=== PATIENT | male | born 1950 | race Caucasian/White ===

== ENCOUNTER → 2024-12-17 10:39 | Outpatient (REF) | payer MEDICARE, SELFPAY | LOC: RAD 10:39 | DX: Z13.6 Encounter for screening for cardiovascular disorders (principal) | CPT/HCPCS: 76770 ==

== ENCOUNTER 2025-03-13 05:17 | Inpatient (IN) | payer MEDICARE, SELFPAY ==
[2025-03-13] VITALS (20 sets, daily range): BP systolic 113–141; BP diastolic 71–101
[2025-03-13 01:31] LABS: Hematocrit 44.8 % (39.0-52.0); Hemoglobin 15.7 g/dL (13.0-18.0); Mean Corp Hgb Conc. 35.0 g/dL (33.0-37.0); Mean Corpuscular Volume 91.4 fL (80.0-94.0); Nucleated Red Blood Cells % 0 % (-); Platelet Count 233 10^3/uL (130-400); Red Cell Dist. Width 11.9 % (11.5-14.5)
--- NOTE | 2025-03-13 01:45 | ED.GENMED ---
ED Provider Triage
<Bao Nguyen MD, Resident - Last Filed: 03/13/25 02:12>
-
Patient seen by provider in Triage?: Seen in Triage
History of Present Illness
<Bao Nguyen MD, Resident - Last Filed: 03/13/25 02:12>
General
Chief Complaint: Heart Rate Problem
Source: patient
Exam Limitations: none
Time Seen by Provider: 03/13/25 01:12
History of Present Illness
History of Present Illness:
74-year-old male who presents for sudden onset of shortness of breath and a rapid heart rate measured using a pulse ox since 4 AM this morning. Highest reading on pulse ox was 124. Symptoms are aggravated on movement and relieved on rest.
Associated with lightheadedness and nausea. No previous cardiac history. Currently wears a Holter monitor as prescribed by rejector due to bradycardia seen on EKG in PCPs office. No chest pain, vomiting, diarrhea, syncope, cough, fever,
chills. Patient states that he recently had a long flight on Saturday and he also has a history of colon cancer which raises a suspicion for a pulmonary embolism. No previous similar clinical history. No use of beta-blockers, calcium channel
blockers, blood thinners.
Past History
<Bao Nguyen MD, Resident - Last Filed: 03/13/25 02:12>
Past History
ED Past Medical History: None
ED Past Surgical History: None
Social History
Tobacco: Former smoker
Alcohol: Occasional
Drug: None
Personal:
Living: with family
Review of Systems
<Bao Nguyen MD, Resident - Last Filed: 03/13/25 02:12>
Review of Systems
Allergies reviewed?: Yes
All Other Systems: ROS reviewed and negative except as documented in HPI and ROS
Phy Exam
<Bao Nguyen MD, Resident - Last Filed: 03/13/25 02:12>
General Physical Exam
General Presentation: well appearing and no apparent distress
General Skin: warm and dry
General Habitus: normal
General Mental: alert
Cardiovascular Exam
Cardiovascular Exam: regular rate/rhythm, no edema and other (There is a Holter monitor present on anterior right side of the chest)
Pulmonary Exam
Pulmonary Exam: lungs clear and no respiratory distress
Gastrointestinal Exam
Gastrointestinal Exam: normal bowel sounds, non tender, soft and non distended
Neurological Exam
Neurological Exam: alert and oriented x3
Musculoskeletal Exam
Musculoskeletal Exam: full ROM and no edema
Psychiatric Exam
Psychiatric Exam: normal mood/affect
Course
<Bao Nguyen MD, Resident - Last Filed: 03/13/25 02:12>
Orders/Labs/Results
Orders:
Orders
03/13/25 00:55
Electrocardiogram (*1) Urgent
Reason for Study: Other
Other Reason for Exam: Respiratory Distress
Cardiac Monitoring- Treatment ONCE
EKG- Treatment ONCE
IV Insert/Care/Rem.- Treatment PRN
CR Chest - 2 Views Urgent
Comment:
Reason For Exam: respiratory distress
O2 Therapy [RESP] Urgent
Titrate/Wean O2 to maintain O2 sat greater than (%): 93
Special Instructions: TO MAINTAIN CONTINUOUS O2 SATS >/= 93%
Pulse Ox/cont/shift [RESP] Urgent
Quantity: 1
Special Instructions: continuous pulse ox
03/13/25 01:18
Complete Blood Count/With Diff Urgent
Comprehensive Metabolic Panel Urgent
NT-proBNP Urgent
Troponin I Urgent
03/13/25 01:54
D-Dimer Urgent
PTT Urgent
03/13/25 02:18
CT Chest PE Study Urgent
Comment:
Reason For Exam: sob, tachycardic, elevated trop
Diphenhydramine [Benadryl] 50 mg IV NOW STA
Hydrocortisone Sod Succinate [Solu-Cortef] 200 mg IV NOW STA
03/13/25 03:29
Heparin 6,400 units IV NOW STA
Nursing to Place Non Medication Order As Directed
Physician Order: PTT 6 hours after initial start of Heparin infusion
Above order entered?: Yes
03/13/25 03:30
Heparin 77869 Units/250 ml 25,000 units in 250 ml IV PER PROTOCOL
Weight to be used for heparin protocol in kilograms (kg):: 79.5
Protocol:: DVT/PE
PTT Goal Range to be used:: PTT 73 to 111 seconds
Order type:: Initial
INITIAL Infusion Dose (UNITS/KG/hr) & then follow protocol:: 18 units/kg/hr
Infusion Dose in UNITS/hr & then follow protocol (UNITS/hr):: 1,400
INFUSION RATE in mL/hr & then follow protocol (mL/hr):: 14
For DVT/PE algorithm, re-bolus for low PTT?: Yes
PTT less than or equal to 64 seconds:: Re-bolus 80 units/kg (max 10,000units). Increase by 300 units/hr
(+ 3mL/hr)
PTT 64.1 to 72.9 seconds:: Re-bolus 40 units/kg (max 5,000 units). Increase by 200 units/hr
(+ 2mL/hr)
PTT 73 to 111 seconds:: Target Range. No change in rate.
PTT 111.1 to 130.9 seconds:: Decrease rate by 200 units/hr (- 2 mL/hr)
PTT 131 to 199.9 seconds:: HOLD for 1 hr. Then decrease by 200 units/hr (- 2mL/hr)
PTT greater than or equal to 200 seconds:: HOLD for 2 hrs & Notify Provider. Then decrease by 300 units/hr
(- 3mL/hr)
Lab follow-up:: Each change, PTT q6h until 2 consecutive are therapeutic. Then
PTT daily.
03/13/25 03:43
Heparin 3,200 units IV PRN PRN
Heparin 6,400 units IV PRN PRN
03/13/25 04:00
Flush (0.9% Sodium Chloride) [Flush (Nss)] See Dose Instructions IV PER PROTOCOL
03/13/25 10:15
PTT Routine
Abnormal Lab Results
03/13/25 03/13/25
01:18 01:54
MCH 32.0 H pg
(27.0-31.0)
Lymphocytes % 16.6 L %
(20.5-51.1)
D-Dimer 11.59 H ug/mlFEU
(0.00-0.50)
Chloride 109 H mmol/L
(98-107)
Glucose 135 H mg/dl
(70-99)
Troponin I 0.940 H* ng/ml
03/13/25 01:18
03/13/25 01:18
Vital Signs
Initial and Last Documented VS:
Initial Vital Signs
Temp Pulse Resp BP Pulse Ox
98.5 F 107 24 137/87 96
03/13/25 01:00 03/13/25 01:00 03/13/25 01:00 03/13/25 01:00 03/13/25 01:00
Last Documented Vital Signs
Temp Pulse Resp BP Pulse Ox
98.5 F 92 22 130/87 91
03/13/25 01:00 03/13/25 04:15 03/13/25 04:15 03/13/25 04:00 03/13/25 04:15
Jesuslt;Jabari Pelaez DO - Last Filed: 03/13/25 04:48>
Orders/Labs/Results
Orders:
Orders
03/13/25 00:55
Electrocardiogram (*1) Urgent
Reason for Study: Other
Other Reason for Exam: Respiratory Distress
Cardiac Monitoring- Treatment ONCE
EKG- Treatment ONCE
IV Insert/Care/Rem.- Treatment PRN
CR Chest - 2 Views Urgent
Comment:
Reason For Exam: respiratory distress
O2 Therapy [RESP] Urgent
Titrate/Wean O2 to maintain O2 sat greater than (%): 93
Special Instructions: TO MAINTAIN CONTINUOUS O2 SATS >/= 93%
Pulse Ox/cont/shift [RESP] Urgent
Quantity: 1
Special Instructions: continuous pulse ox
03/13/25 01:18
Complete Blood Count/With Diff Urgent
Comprehensive Metabolic Panel Urgent
NT-proBNP Urgent
Troponin I Urgent
03/13/25 01:54
D-Dimer Urgent
PTT Urgent
03/13/25 02:18
CT Chest PE Study Urgent
Comment:
Reason For Exam: sob, tachycardic, elevated trop
Diphenhydramine [Benadryl] 50 mg IV NOW STA
Hydrocortisone Sod Succinate [Solu-Cortef] 200 mg IV NOW STA
03/13/25 03:29
Heparin 6,400 units IV NOW STA
Nursing to Place Non Medication Order As Directed
Physician Order: PTT 6 hours after initial start of Heparin infusion
Above order entered?: Yes
03/13/25 03:30
Heparin [id number] Units/250 ml 25,000 units in 250 ml IV PER PROTOCOL
Weight to be used for heparin protocol in kilograms (kg):: 79.5
Protocol:: DVT/PE
PTT Goal Range to be used:: PTT 73 to 111 seconds
Order type:: Initial
INITIAL Infusion Dose (UNITS/KG/hr) & then follow protocol:: 18 units/kg/hr
Infusion Dose in UNITS/hr & then follow protocol (UNITS/hr):: 1,400
INFUSION RATE in mL/hr & then follow protocol (mL/hr):: 14
For DVT/PE algorithm, re-bolus for low PTT?: Yes
PTT less than or equal to 64 seconds:: Re-bolus 80 units/kg (max 10,000units). Increase by 300 units/hr
(+ 3mL/hr)
PTT 64.1 to 72.9 seconds:: Re-bolus 40 units/kg (max 5,000 units). Increase by 200 units/hr
(+ 2mL/hr)
PTT 73 to 111 seconds:: Target Range. No change in rate.
PTT 111.1 to 130.9 seconds:: Decrease rate by 200 units/hr (- 2 mL/hr)
PTT 131 to 199.9 seconds:: HOLD for 1 hr. Then decrease by 200 units/hr (- 2mL/hr)
PTT greater than or equal to 200 seconds:: HOLD for 2 hrs & Notify Provider. Then decrease by 300 units/hr
(- 3mL/hr)
Lab follow-up:: Each change, PTT q6h until 2 consecutive are therapeutic. Then
PTT daily.
03/13/25 03:43
Heparin 3,200 units IV PRN PRN
Heparin 6,400 units IV PRN PRN
03/13/25 04:00
Flush (0.9% Sodium Chloride) [Flush (Nss)] See Dose Instructions IV PER PROTOCOL
03/13/25 10:15
PTT Routine
Abnormal Lab Results
03/13/25 03/13/25
01:18 01:54
MCH 32.0 H pg
(27.0-31.0)
Lymphocytes % 16.6 L %
(20.5-51.1)
D-Dimer 11.59 H ug/mlFEU
(0.00-0.50)
Chloride 109 H mmol/L
(98-107)
Glucose 135 H mg/dl
(70-99)
Troponin I 0.940 H* ng/ml
03/13/25 01:18
03/13/25 01:18
Vital Signs
Initial and Last Documented VS:
Initial Vital Signs
Temp Pulse Resp BP Pulse Ox
98.5 F 107 24 137/87 96
03/13/25 01:00 03/13/25 01:00 03/13/25 01:00 03/13/25 01:00 03/13/25 01:00
Last Documented Vital Signs
Temp Pulse Resp BP Pulse Ox
98.5 F 92 22 130/87 91
03/13/25 01:00 03/13/25 04:15 03/13/25 04:15 03/13/25 04:00 03/13/25 04:15
<Bao Nguyen MD, Resident - Last Filed: 03/13/25 02:12>
MDM/Problems Addressed
Differential Diagnosis Includes:
Atrial fibrillation with RVR, acute coronary syndrome, pulmonary embolism, sinus tachycardia, pneumothorax
MDM/Problems Addressed:
74-year-old male presents with shortness of breath and rapid heart rate. Physical examination is negative for any positive pertinent findings. Vitals show heart rate of 103.
- CMP- pending
- CBC- unremarkable
- Trops- pending
- EKG- shows sinus tachycardia
- Chest xray- pending
- D dimer- pending
<Bao Nguyen MD, Resident - Last Filed: 03/13/25 02:12>
*Pulse Oximetry
SaO2: 92
Oxygen Mode of Delivery: Room air
Patient hypoxic: no
*Critical Care Note
Total Time (30-74mins, 75-104mins- exclusive of procedures): Not Applicable
<Jabari Pelaez DO - Last Filed: 03/13/25 04:48>
*Radiology
Radiology exam reviewed: preliminary read by ED provider (My review of the patient's CTA of the chest shows bilateral pulmonary emboli with a saddle component)
*Pulse Oximetry
SaO2: 88
Patient hypoxic: yes
*EKG
Interpreted by ED Provider?: Yes
Interpretation: abnormal
Heart Rate: 105
Rate: tachycardiac
Rhythm: sinus tachycardia
[place]: left axis deviation
Interval: first degree heart block
QRS Pattern: normal QRS
Ischemia: non-specific ST changes
*[employer] Interpretation
Rate: tachycardiac
Interpretation: abnormal
Rhythm: sinus tachycardia
*Critical Care Note
Total Time (30-74mins, 75-104mins- exclusive of procedures): 38 min
comment:
Critical care statement: A total of 38 minutes of critical care time was provided for this patient. This includes management of unstable vital signs, evaluation of the patient at bedside, reviewing the patient's pertinent medical records, discussion
with consultants, review of old EKGs and review of pertinent medical records. This time with separate from time utilized to perform the aforementioned documented procedures
ED Attending Note
<Bao Nguyen MD, Resident - Last Filed: 03/13/25 02:12>
-
Portions of this chart may have been created with voice recognition software.� Occasional wrong word or��sound alike� substitutions may have occurred due to the inherent limitations of voice recognition software.
<Jabari Pelaez DO - Last Filed: 03/13/25 04:48>
ED Attending Note
Patient seen and examined by attending physician: Yes
I performed a history and physical exam of patient and discussed management with resident, I reviewed resident's note and agree with documented findings and plan of care.: Yes
ED Attending Note:
74-year-old male presents to the emergency room complaining of feeling short of breath. Patient also noted his heart rate was rapid. Patient noticed that he was short of breath earlier Saturday when he walked to get his mail. He became so short of
breath that he had to stop and rest. He also felt dizzy with that activity. He further noted that he was short of breath and lightheaded going up a flight of steps. Patient has a low bit of pressure in his chest but denies any significant pain.
He does endorse recent travel with flight to and back home from a [place]. While in [place] he was on a bus tour. Patient ironically has a Holter monitor on which was placed due to low heart rate. No syncope. He has a distant history of colon
cancer which was treated about 19 years ago.
General: Awake, Alert, Oriented X3. No acute distress.
Vitals: Tachycardic
Head: Atraumatic
Eyes: Pupils equal, EOMI
Throat: Airway intact, no exudates
Neck: Trachea midline
Lungs: Clear and equal b/l
Heart: Regular rate, no murmurs
Abd: Soft, Nontender, No pulsatile mass
Neuro: Nonfocal
Skin: Warm, dry, no rash
Extremities: pulses equal b/l, right lower extremity appears somewhat swollen compared to the left
EKG: Sinus tachycardia at 105. First-degree AV block. Nonspecific ST changes
Labs: CBC and chemistries are fairly unremarkable. Troponin is quite elevated at 0.9. D-dimer is markedly elevated at 11. CT of the chest ordered. My suspicion is quite high given these lab results. Heparin ordered while waiting for the patient
to prep for CT. He has had hives in the past and so requires further IV contrast.
CT confirms the presence of pulmonary emboli bilaterally with a saddle component. Case discussed with Dr. Fernandez who is on-call for critical care. He reviewed the patient's CT scan. Agrees with heparin. No intervention at this time.
Discharge Plan
Departure
Patient Disposition: Admit
Date of Disposition: 03/13/25
Time of Disposition: 04:20
Admit to: IMU
Presentation/result/management discussed w/ accepting MD/DO: Hospitalist
Condition: Serious
Discharge Problem:
Pulmonary emboli
Prescriptions:
No Action
atorvastatin 10 mg Tablet
10 mg PO DAILY
aspirin [Baby Aspirin] 81 mg Tablet,Chewable
81 mg PO 1XD
Referrals:
Caridad Gutierrez MD [Family Provider, Internal Medicine]
Interventions
Interventions:
*Risk Screen - Suicide Last Done: 03/13/25 01:00
*General Assessment Last Done: 03/13/25 01:00
*Neglect/Abuse Screening Last Done: 03/13/25 01:00
*ED- Fall Risk Assessment Last Done: 03/13/25 01:00
*ED COVID-19 Vaccine History Last Done: 03/13/25 01:00
*ED Influenza Vaccine History Last Done: 03/13/25 01:00
ED- Cardiac Assessment Last Done: 03/13/25 01:26
ED- Pulmonary Assessment Last Done: 03/13/25 01:26
Discharge Date and Time
Print Language: JAPANESE
[2025-03-13 01:55] LABS: ALT (SGPT) 21 U/L (0-50); AST (SGOT) 26 U/L (17-59); Albumin 4.1 g/dl (3.5-5.0); Alkaline Phosphatase 83 U/L (38-126); Blood Urea Nitrogen 12 mg/dl (9-20); Calcium 9.1 mg/dl (8.4-10.2); Carbon Dioxide 23 mmol/L (22-30); Chloride 109 mmol/L (98-107); Glucose 135 mg/dl (70-99); Potassium 4.6 mmol/L (3.5-5.1); Sodium 140 mmol/L (135-145); Total Protein 6.9 g/dl (6.3-8.2); eGFR > 60.00
[2025-03-13 02:12] LABS: Troponin I 0.940 ng/ml
[2025-03-13] MEDS: BENADRYL 50 MG IV (02:36)
[2025-03-13] MEDS: SOLU-CORTEF 200 MG IV (02:36)
[2025-03-13 02:45] LABS: D-Dimer 11.59 ug/mlFEU (0.00-0.50)
[2025-03-13 03:51] LABS: APTT 31.5 Sec (23.4-35.0)
[2025-03-13] MEDS: HEPARIN 6400 UNITS IV (04:11)
[2025-03-13] MEDS: HEPARIN 25000 UNITS/250 ML IV (04:12)
--- NOTE | 2025-03-13 05:04 | HPS.HSE ---
Family Physician
-
Family Physician: Caridad Gutierrez MD
Chief Complaint
-
Chest Pain, SOB
History of Present Illness
Patient is a 74y M with PMH significant for colon cancer and hemochromatosis who presents to ED complaining of chest pain and SOB. Patient states that he went for a short walk this afternoon and developed lightheadedness, dizziness, shortness of
breath and chest discomfort. He sat for about 45 minutes before recovering. he then walked up one flight of stairs and his symptoms promptly returned. He presented to the ED for further evaluation and treatment.
Patient denies any syncope / collapse. He had mild nausea and diaphoresis.
Patient states that he recently traveled to [place]. His return flight was Saturday. Patient notes that he had a GI illness for the last few days of his trip - now resolved.
He noted some pain in the R calf about 1-2 days after his flight.
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 He was treated with Coumadin for a time. He had SVC stent(s) placed after the port was removed.
He denies any other history of DVT / PE. No known family history of DVT / PE.
Medical History
Past Medical History
Past Medical History: Reports Other
Additional Past Medical History:
Colon Cancer s/p Surgery, Chemo and XRT (19 years ago)
Leiomyosarcoma Right LE (2008)
Dyslipidemia
Hemochromatosis
Skin Cancer
Past Surgical History: Reports Other
Additional Past Surgical History:
Partial Colectomy
Chemo Port
SVC Stent
RLE Sarcoma Resection / Skin Graft
Social History
Tobacco: Former Smoker (Quit smoking 50 years ago.)
Alcohol: Daily (1-2 drinks daily.)
Drug: None
Personal:
Living: With Family
Family History
Family History: Not pertinent
Allergies / Home Medications
Allergies reflects when Allergies were last updated in [facility].
Home Medications with original date entered in [facility]
Allergy/Medication List:
Allergies
Allergy/AdvReac Type Severity Reaction Status Date / Time
ct dye Allergy Hives Uncoded 03/13/25 00:59
Home Medications
aspirin 81 mg chewable tablet 81 mg PO 1XD 03/13/25
atorvastatin 10 mg tablet 10 mg PO DAILY 03/13/25
Review of Systems
-
History Source: Patient
A 12 point ROS was completed and negative except as noted: Yes
Constitutional: Denies Fever or Chills
Respiratory: Reports Trouble Breathing; Denies Cough
Cardiac: Reports Chest Pain, Diaphoresis and Palpitations
Abdomen/GI: Reports Nausea; Denies Abdominal Pain, Vomiting or Diarrhea
: Denies Dysuria or Frequency
Musculoskeletal: Reports Muscle Pain (R calf); Denies Joint Pain or Edema
Neurological: Reports Dizzy; Denies Headache
Physical Exam
Vital Signs
Vital Signs
Temp Pulse Resp BP Pulse Ox
98.5 F 92 22 130/87 88
03/13/25 01:00 03/13/25 04:15 03/13/25 04:15 03/13/25 04:00 03/13/25 04:48
Physical Exam
General: Other (74y M in no acute distress.)
HEENT: Moist mucous membranes and PERRLA
Respiratory: Clear; No Wheezes, Rales or Rhonchi
Cardiac: S1/S2, Regular Rhythm and Other (external cardiac nurse specialist in place); No Murmur
GI: Soft, Non Tender, Non Distended and Normal Bowel Sounds
Musculoskeletal: No Clubbing, No Cyanosis, No Edema and Other (Post-surgical changes distal R leg / posteriorly. No calf tenderness / cords at present.)
Neuro: AO x 3
Laboratory Results
-
03/13/25 01:18
03/13/25 01:18
Laboratory Results
APTT Cancelled 03/13/25 03:29
Total Bilirubin 1.2 mg/dl (0.2-1.3) 03/13/25 01:18
AST 26 U/L (17-59) 03/13/25 01:18
ALT 21 U/L (0-50) 03/13/25 01:18
Alkaline Phosphatase 83 U/L (38-126) 03/13/25 01:18
Troponin I 0.940 ng/ml H* 03/13/25 01:18
Impression/Plan
-
A/P: Patient is a 74y M with PMH significant for colon cancer, leiomyosarcoma and hemochromatosis who presents to ED complaining of chest pain and SOB.
Pulmonary Emboli
- Admit for further evaluation and treatment.
- Chest pain and SOB following recent travel to [place] and noted R calf pain about 1-2 days after return flight.
- CT done in the ED today shows bilateral PE with saddle component.
- Hemodynamically stable. Adequate oxygenation on NC O2.
- Troponin mildly elevated - follow to peak.
- Continue IV heparin for at least 24 hours.
- Echo and LE doppler in AM.
- Follow for any new / worsening symptoms.
- Transition to OAC prior to discharge.
Arrhythmia
- Patient has external cardiac nurse specialist in place for evaluation of low heart rates.
- Monitor on tele during stay here.
- Follow-up with Cardiology (Dr. Santos) after discharge.
History of Colon Cancer
History of RLE Leiomyosarcoma
History of SVC Syndrome s/p Stent
- All remote problems with no current / recent active issues.
Code Status: Full
--- NOTE | 2025-03-13 07:45 | W.PN.HOSP.TC ---
Today's Communication/Plan
-
see a/p
Assessment / Plan
Assessment / Plan
Physical Exam
General: No acute distress, appears comfortable at this time.
HEENT: Moist mucous membranes and PERRLA
Respiratory: Clear; No Wheezes, Rales or Rhonchi
Cardiac: S1/S2, Regular Rhythm, external diamond finishing supervisor in place, No Murmur
GI: Soft, Non Tender, Non Distended and Normal Bowel Sounds
Musculoskeletal: No Clubbing, No Cyanosis, No Edema and Other (Post-surgical changes distal R leg / posteriorly. No calf tenderness / cords at present.)
Neuro: AO x 3 conversant coherent
A/P: Patient is a 74y M with PMH significant for colon cancer, leiomyosarcoma and hemochromatosis who presents to ED complaining of chest pain and SOB.
Pulmonary Emboli
- Tele Admit
- Chest pain and SOB following recent travel to [place] and noted R calf pain about 1-2 days after return flight.
- CT done in the ED today shows bilateral PE with saddle component.
- Hemodynamically stable. Weaned off oxygen supplementation.
- Troponin mildly elevated 0.940 peak, since trended down, possible PE cor pulmonale vs non-ischemic myocardial injury
- Continue IV heparin gtt
- Echo pending
- LE doppler appreciated RLE DVT femoral popliteal peroneal veins, no DVT LLE
- Follow for any new / worsening symptoms.
- Transition to OAC prior to discharge.
-Pulm eval appreciated
-Hematology eval appreciated
Arrhythmia
- Patient has external diamond finishing supervisor in place for evaluation of low heart rates.
- Monitor on tele during stay here.
- Follow-up with Cardiology (Dr. Santos) after discharge.
History of Colon Cancer
History of RLE Leiomyosarcoma
History of SVC Syndrome s/p Stent
- All remote problems with no current / recent active issues.
Code Status: Full
I spent a total of 50 minutes with the patient or on the floor. More than 50% of this time involved counseling and coordination of care.
Anticipated Discharge: 24 - 48 hours
Subjective/Interval History
-
Date of Service: March 13, 2025
No acute distress, sitting up comfortably in bed, overall reports feeling well. Weaned off oxygen supplementation, stable respiratory status on room air.
Objective Data
-
Labs:
Laboratory Results
03/13/25 03/13/25 03/13/25
01:18 01:54 03:29
WBC 7.4
Hgb 15.7
Hct 44.8
Plt Count 233
APTT 31.5 Cancelled
Sodium 140
Potassium 4.6
Chloride 109 H
Carbon Dioxide 23
BUN 12
Creatinine 0.9
Glucose 135 H
Calcium 9.1
Total Bilirubin 1.2
AST 26
ALT 21
Alkaline Phosphatase 83
03/13/25
10:15
WBC
Hgb
Hct
Plt Count
APTT Pending
Sodium
Potassium
Chloride
Carbon Dioxide
BUN
Creatinine
Glucose
Calcium
Total Bilirubin
AST
ALT
Alkaline Phosphatase
Vital Signs:
Vital Signs
Temp Pulse Resp BP Pulse Ox
98.5 F 91 21 125/84 94
03/13/25 01:00 03/13/25 07:15 03/13/25 07:15 03/13/25 07:00 03/13/25 07:21
[2025-03-13 08:44] LABS: Troponin I 0.569 ng/ml
[2025-03-13] MEDS: LOW STRENGTH ASPIRIN 81 MG PO (09:35)
[2025-03-13] MEDS: LIPITOR 10 MG PO (09:35)
--- NOTE | 2025-03-13 11:03 | CON.PUL ---
Consultation
Consultation Request
Date/Time Consultation Requested: 03/13/2025
Date/Time Consultation Performed: 03/13/2025
Medical History
-
Chief Complaint: Dyspnea
History of Present Illness:
Patient is a very pleasant 74-year-old gentleman with remote history of colon cancer and hemochromatosis who presented to emergency room with chief complaint of dyspnea and mild chest discomfort. Patient developed lightheadedness, shortness of
breath and chest discomfort while walking. This required him to sit to recover. Symptoms recurred when patient attempted to go up stairs. No reported syncope or collapse. Reported recent travel to [place] with a return flight on Saturday. Workup
in the emergency room was suggestive of bilateral pulmonary embolism. PERT alert was activated, in view of patient's hemodynamic stability and lack of oxygen need, decision was made to continue anticoagulation with heparin and pursue echocardiogram
for further evaluation.
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 No other prior history of DVT or PE events.
Pulmonary consultation was requested for further input.
Past Medical History
Past Medical History: Reports Other
Additional Past Medical History:
Colon Cancer s/p Surgery, Chemo and XRT (19 years ago)
Leiomyosarcoma Right LE (2008)
Dyslipidemia
Hemochromatosis
Skin Cancer
Past Surgical History: Reports Other
Additional Past Surgical History:
Partial Colectomy
Chemo Port
SVC Stent
RLE Sarcoma Resection / Skin Graft
Social History
Tobacco: Former Smoker (Quit smoking 50 years ago.)
Alcohol: Daily (1-2 drinks daily.)
Drug: None
Personal:
Living: With Family
Allergies / Home Medications
Allergies
Allergy/AdvReac Type Severity Reaction Status Date / Time
ct dye Allergy Hives Uncoded 03/13/25 00:59
Home Medications
�Medication �Instructions �Recorded �Confirmed �Last Taken �Type
aspirin 81 mg chewable tablet 81 mg PO 1XD 03/13/25 03/13/25 Unknown History
atorvastatin 10 mg tablet 10 mg PO DAILY 03/13/25 03/13/25 Unknown History
Review of Systems
-
Hematologic/Lymphatic: Other (Negative except as stated above in HPI)
Vitals / Labs / Diagnostic Testing
Vital Signs
Temp Pulse Resp BP Pulse Ox
97 F 92 16 129/85 95
03/13/25 08:03 03/13/25 08:03 03/13/25 08:03 03/13/25 08:03 03/13/25 08:03
Lab Data
03/13/25 01:18
03/13/25 01:18
Laboratory Results
03/13/25 03/13/25
01:54 03:29
APTT 31.5 Cancelled
Diagnostic Testing:
Physical Exam
-
HEENT: Normocephalic
Cardiovascular: S1/S2
Respiratory: Clear and Non-Labored Respirations
GI: Soft and Non Distended
Neurology: Awake and Alert
Skin: Warm
General: Comfortable
Assessment
-
#1. Acute pulmonary embolism, bilateral and saddle
- Mild right heart strain noted on imaging. Troponin and BNP also both elevated
- Patient hemodynamically doing well, blood pressure 129 x 85. No tachycardia or tachypnea. Saturating 95% on room air currently.
- Check echocardiogram for further evaluation, agree with lower extremity Dopplers to evaluate for any concomitant DVT.
- Troponin leak likely in the setting of bilateral pulmonary embolism. Follow-up troponin is already improving. No ST elevation noted on EKG.
- Etiology appears to be provoked in the setting of long flight from [place]. Needs a minimum of 3 months of anticoagulation as long as age-appropriate cancer screening is negative and no active malignancy, with resolution of clot on follow-up
imaging.
- Hypercoagulability workup less likely to be helpful at age 74 particularly in the setting of a provoked VTE event
- Await hematology, oncology input. Outpatient follow-up with [facility] pulmonary clinic
Other medical diagnoses:
- History of colon cancer
- History of leiomyosarcoma
- SVC syndrome, s/p stent placement
Total time spent on this consultation/encounter __65__ minutes which includes review of history, physical exam, medications, laboratory data, personal review of imaging, extensive review of outpatient records, discussion with care team and
respiratory therapy.
Data:
CT-PE 03/2025: 1. Saddle pulmonary emboli extending throughout all lobar and most segmental pulmonary arteries bilaterally.
2. Findings suggesting right heart strain.
[2025-03-13 11:15] LABS: APTT > 200 Sec (23.4-35.0)
--- NOTE | 2025-03-13 13:41 | CON.ONC ---
Consultation
-
Date Consultation Requested: 03/13/25
Date Consultation Performed: 03/13/25
Requesting Provider: Joel rojas
Performing Provider: thai pimentel
Reason for Consultation: saddle PE
Impression
Impression
- submassive PE with saddle embolism
- RLE DVT
- hx of catheter associated DVT
- hx of stage III colon cancer 2005
Plan
Plan
- pt presenting with second provoked VTE event with submassive-massive PE with saddle PE, right heart strain. he was tachy otherwise hemodynamically stable, not requiring O2 at this time. LE US with RLE DVT. recent provoking factor includes long air
travel from [place] +/- co-existing viral illness at time of travel.
- hx notable for clot involving his port in 2005 during adjuvant chemotherapy for stage III colorectal cancer. screening up to date and without recurrence.
- on heparin gtt now. recommend transitioning to DOAC with appropriate loading dose after 48 hours on heparin infusion.
- no role for hereditary thrombophilia testing at this time without strong family hx. can consider as outpt. will sent AcL, B2G antibodies now, can check LA outpt to rule out APLAS due to extent of thrombus, 2nd event.
- recommend at least 6 months full dose AC due to clot burden. despite provoking nature of event I feel he would be candidate for indefinite AC with now 2 events and potentialy life-threatening clot burden. Will arrange follow up to review labs and
discuss this further.
Patient History
History of Present Illness
Patient is a 74y M with PMH significant for colon cancer and hemochromatosis who presented to ED complaining of chest pain and BARRY x 24 hours. Pt had also noted new right calf pain x 3 days.he recently traveled to [place] with ~ 8 hour flight home
on 03/06. D-dimer was high at 11.59. Vitals with mild tachycardia otherwise hemodynamically stable, Pox 92% on RA. Of note, he was seen by cardiology earlier this week for lower HR he tells me, scheduled for outpt echo on 03/16. Denies dizziness, near
syncope. CTA chest showed Saddle pulmonary emboli extending throughout all lobar and most segmental pulmonary arteries bilaterally. Findings suggesting right heart strain. LE US showed Right lower extremity DVT involving the femoral, popliteal and
peroneal veins. HE was started on heparin gtt and admitted for further management. Hx notable for catheter-associated thrombosis of his chemo port (19 years ago for stage III colon cancer). He was treated with Coumadin for a time. He had SVC
stent(s) placed after the port was removed. He denies any other history of DVT / PE. No known family history of DVT/PE. He is non-smoker. cancer screening up to date. no hx of arterial clotting complications. no hx of AI or chronic inflammatory
conditions.
Past-Medical/Surgical History
- stage III colon cancer
- prot associated DVT
- HLD
Patient Medication
�Medication �Instructions �Recorded �Confirmed �Last Taken �Type
aspirin 81 mg chewable tablet 81 mg PO 1XD 03/13/25 03/13/25 Unknown History
atorvastatin 10 mg tablet 10 mg PO DAILY 03/13/25 03/13/25 Unknown History
Active Medications
Generic Name Dose Route Start Last Admin
Trade Name Freq PRN Reason Stop Dose Admin
Acetaminophen 650 mg 03/13/25 07:24
Acetaminophen 325 Mg Tablet PO 04/10/25 07:23
Q4HPRN PRN
Mild Pain / Temp > 101
Aspirin 81 mg 03/13/25 08:00 03/13/25 09:35
Aspirin 81 Mg Chewable Tablet PO 04/10/25 07:59 81 mg
DAILY TUNG Administration
Atorvastatin Calcium 10 mg 03/13/25 08:00 03/13/25 09:35
Atorvastatin (Lipitor) 10 Mg Tablet PO 04/10/25 07:59 10 mg
DAILY TUNG Administration
Heparin Sodium 6,400 units 03/13/25 03:43
Heparin 80 Units/Kg Iv Rebolus IV 04/10/25 03:42
PRN PRN
PTT < OR = 64 seconds
Heparin Sodium 3,200 units 03/13/25 03:43
Heparin 40 Units/Kg Iv Rebolus IV 04/10/25 03:42
PRN PRN
PTT = 64.1 to 72.9 seconds
Heparin Sodium 25,000 units in 250 mls @ 0 mls/hr 03/13/25 03:30 03/13/25 04:12
Heparin 14789 Units/250 Ml IV 250 mls
PER PROTOCOL TUNG Administration
Protocol
Per Protocol
Loperamide HCl 2 mg 03/13/25 12:33
Loperamide 2 Mg Capsule PO 04/10/25 12:32
Q6HPRN PRN
diarrhea
Morphine Sulfate 2 mg 03/13/25 07:24
Morphine 2 Mg/Ml Syringe IV 03/27/25 07:23
Q4HPRN PRN
Severe Pain
Polyethylene Glycol 17 grams 03/13/25 12:34
Polyethylene Glycol Powder 17 Grams Packet PO 04/10/25 12:33
DAILYPRN PRN
constipation
Senna/Docusate Sodium 1 tablet 03/13/25 12:33
Docusate W/Senna (Yesika-Colace) Tablet PO 04/10/25 12:32
BIDPRN PRN
constipation
Sodium Chloride 0 flush 03/13/25 04:00
Sodium Chloride 0.9% (Flush) Syringe IV 04/10/25 03:59
PER PROTOCOL TUNG
Review of Systems
-
History Source: Patient
Constitutional: Denies Fever
Respiratory: Reports Trouble Breathing and Pleurisy; Denies Cough or Hemoptysis
Cardiac: Reports Chest Pain; Denies Palpitations or Syncope
GI: Denies Abdominal Pain
Musculoskeletal: Reports Muscle Pain, Edema and Myalgias (right calf)
Neuro: Denies Weakness, Ataxia or Lightheadedness
Hematologic/Lymphatic: Reports Blood Clots; Denies Bruising
Physical Exam
-
General: Well Developed, Well Nourished and No Apparent Distress
HEENT: Negative Jaundice
Cardiology: Normal Sinus Rhythm
Pulmonary: Clear; Negative Wheezes or Rhonchi
Musculoskeletal: Edema, Right Lower Extrem (mild asymmetry compared to left )
Extremities: Edema; Negative Phlebitic Signs
Neurology: Non Focal and No Lateralizing Symptoms
Psych: Calm
Labs
Lab Results
WBC 7.4 10^3/uL (4.8-10.8) 03/13/25 01:18
RBC 4.90 10^6/uL (4.70-6.10) 03/13/25 01:18
Hgb 15.7 g/dL (13.0-18.0) 03/13/25 01:18
Hct 44.8 % (39.0-52.0) 03/13/25 01:18
MCV 91.4 fL (80.0-94.0) 03/13/25 01:18
MCH 32.0 pg (27.0-31.0) H 03/13/25 01:18
MCHC 35.0 g/dL (33.0-37.0) 03/13/25 01:18
RDW 11.9 % (11.5-14.5) 03/13/25 01:18
Plt Count 233 10^3/uL (130-400) 03/13/25 01:18
MPV 8.9 fL (7.4-10.4) 03/13/25 01:18
Abs Immat Gran (auto) 0.0 10^3/uL (0-0.05) 03/13/25 01:18
Absolute Neuts (auto) 5.5 10^3/uL (1.4-6.5) 03/13/25 01:18
Absolute Lymphs (auto) 1.2 10^3/uL (1.2-3.4) 03/13/25 01:18
Absolute Monos (auto) 0.5 10^3/uL (0.1-0.6) 03/13/25 01:18
Absolute Eos (auto) 0.2 10^3/uL (0-0.7) 03/13/25 01:18
Absolute Basos (auto) 0.0 10^3/uL (0-0.2) 03/13/25 01:18
Immature Gran % 0.3 % (0-0.5) 03/13/25 01:18
Neutrophils % 74.1 % (42.2-75.2) 03/13/25 01:18
Lymphocytes % 16.6 % (20.5-51.1) L 03/13/25 01:18
Monocytes % 6.5 % (1.7-9.3) 03/13/25 01:18
Eosinophils % 2.2 % (0-6) 03/13/25 01:18
Basophils % 0.3 % (0-2) 03/13/25 01:18
Creatinine 0.9 mg/dL (0.7-1.3) 03/13/25 01:18
Vital Signs
Vital Signs
Temp Pulse Resp BP Pulse Ox
97 F 92 16 129/85 95
03/13/25 08:03 03/13/25 08:03 03/13/25 08:03 03/13/25 08:03 03/13/25 08:03
--- NOTE | 2025-03-13 19:30 | PTCARENOTE ---
Assumed care of patient from previous RN - patient alert and oriented, pleasant, family at bedside. Patient with no complaints at this time. Heparin drip maintained at 1100 units/hour, no signs of bleeding. Sitting up in chair, call hood in reach,
will monitor.
[2025-03-13 20:23] LABS: APTT 78.7 Sec (23.4-35.0)
[2025-03-14] VITALS (7 sets, daily range): BP systolic 134–155; BP diastolic 73–92
[2025-03-14] MEDS: HEPARIN 25000 UNITS/250 ML IV ×2 (02:20→23:31)
[2025-03-14 03:50] LABS: Hematocrit 42.8 % (39.0-52.0); Hemoglobin 14.7 g/dL (13.0-18.0); Mean Corp Hgb Conc. 34.3 g/dL (33.0-37.0); Mean Corpuscular Volume 96.4 fL (80.0-94.0); Platelet Count 235 10^3/uL (130-400); Red Cell Dist. Width 12.1 % (11.5-14.5)
[2025-03-14 03:55] LABS: APTT 85.9 Sec (23.4-35.0)
[2025-03-14 04:15] LABS: Blood Urea Nitrogen 22 mg/dl (9-20); Calcium 8.8 mg/dl (8.4-10.2); Carbon Dioxide 26 mmol/L (22-30); Chloride 108 mmol/L (98-107); Estimated Creatinine Clearance 60 ml/min; Glucose 121 mg/dl (70-99); HDL Cholesterol 43 mg/dl; LDL Cholesterol, Calculated 72 mg/dl; Magnesium 2.2 mg/dl (1.6-2.3); Potassium 4.2 mmol/L (3.5-5.1); Sodium 140 mmol/L (135-145); Very Low Density Lipoprotein 30 mg/dl (0-30); eGFR > 60.00
[2025-03-14] MEDS: LOW STRENGTH ASPIRIN 81 MG PO (07:42)
[2025-03-14] MEDS: LIPITOR 10 MG PO (07:42)
--- NOTE | 2025-03-14 07:54 | W.PN.HOSP.TC ---
Today's Communication/Plan
-
ECHO Saturday
Transition hep gtt to Eliquis Saturday
Likely home no needs tomorrow if no significant abn's ECHO and remains stable for discharge.
Assessment / Plan
Assessment / Plan
Physical Exam
General: No acute distress, appears comfortable at this time.
HEENT: Moist mucous membranes and PERRLA
Respiratory: Clear; No Wheezes, Rales or Rhonchi
Cardiac: S1/S2, Regular Rhythm, external cardiac/vascular sonographer in place, No Murmur
GI: Soft, Non Tender, Non Distended and Normal Bowel Sounds
Musculoskeletal: No Clubbing, No Cyanosis, No Edema, Calf asymmetry (R>L)
Neuro: AO x 3 conversant coherent
A/P: Patient is a 74y M with PMH significant for colon cancer, leiomyosarcoma and hemochromatosis who presents to ED complaining of chest pain and SOB.
Pulmonary Emboli
- Tele Admit
- Chest pain and SOB following recent travel to [place] and noted R calf pain about 1-2 days after return flight.
- CT done in the ED today shows bilateral PE with saddle component.
- Hemodynamically stable. Weaned off oxygen supplementation.
- Troponin mildly elevated 0.940 peak, since trended down, possible PE cor pulmonale vs non-ischemic myocardial injury
- Home oxygen assessment 03/14 08:25 appreciated no needs, ambulatory without need for assist device, no need for PT eval at this time
- LE doppler appreciated RLE DVT femoral popliteal peroneal veins, no DVT LLE
-Pulm eval appreciated
-Hematology eval appreciated
-hep gtt 48h treatment to transition to Eliquis 10 mg BID 03/15 AM
- Echo pending
Arrhythmia
- Patient has external cardiac/vascular sonographer in place for evaluation of low heart rates.
- Monitor on tele during stay here.
- Follow-up with Cardiology (Dr. Santos) after discharge.
History of Colon Cancer
History of RLE Leiomyosarcoma
History of SVC Syndrome s/p Stent
- All remote problems with no current / recent active issues.
Code Status: Full
I spent a total of 45 minutes with the patient or on the floor. More than 50% of this time involved counseling and coordination of care.
Anticipated Discharge: Within 24 hours
Subjective/Interval History
-
Date of Service: March 14, 2025
Seen and examined at bedside in no acute distress, sitting up comfortably in bed. Overall reports feeling well. Denies new acute issues at this time.
Objective Data
-
Labs:
Laboratory Results
03/13/25 03/14/25
19:52 03:29
WBC 7.1
Hgb 14.7
Hct 42.8
Plt Count 235
APTT 78.7 H 85.9 H
Sodium 140
Potassium 4.2
Chloride 108 H
Carbon Dioxide 26
BUN 22 H
Creatinine 1.1
Glucose 121 H
Calcium 8.8
Vital Signs:
Vital Signs
Temp Pulse Resp BP Pulse Ox
98.4 F 77 16 134/80 100
03/14/25 03:03 03/14/25 03:03 03/14/25 03:03 03/14/25 03:03 03/14/25 03:03
I&O
03/13/25 03/14/25 03/15/25
06:59 06:59 06:59
Intake Total 1440 / 1440
Balance 1440 / 1440
--- NOTE | 2025-03-14 09:54 | CM ---
CM met with pt at bedside.
Prior to admission, pt ind with amb and adl's using no AD.
Confirmed PCP is Caridad Gutierrez and pharmacy is [facility] in [place].
Reports + prescription plan.
HC history years ago. No SNF history.
No skilled discharge needs anticipated. CM to follow and watch for needs.
--- NOTE | 2025-03-14 13:18 | W.PN.PUL3 ---
Addendum entered and electronically signed by Alcon Fernandez MD 03/14/25 13:25:
Addendum:
- Initiate Elquis 10 mg BID 0n 03/15
- Pulm service will sign off, please call as needed
Original Note:
Today's Communication / Plan
-
- Can transition to Eliquis 10 mg twice daily starting tonight
- Discontinue aspirin now that patient has been on anticoagulation
- Assess for need for home oxygen prior to discharge. Anticipate discharge 03/15
- Outpatient follow-up with pulmonary clinic in 6 weeks
- Further workup as outpatient, pulmonary service will sign off, please call as needed
Assessment
-
Patient is a very pleasant 74-year-old gentleman with remote history of colon cancer and hemochromatosis who presented to emergency room with chief complaint of dyspnea and mild chest discomfort. Patient developed lightheadedness, shortness of
breath and chest discomfort while walking. This required him to sit to recover. Symptoms recurred when patient attempted to go up stairs. No reported syncope or collapse. Reported recent travel to [place] with a return flight on Saturday. Workup
in the emergency room was suggestive of bilateral pulmonary embolism. PERT alert was activated, in view of patient's hemodynamic stability and lack of oxygen need, decision was made to continue anticoagulation with heparin and pursue echocardiogram
for further evaluation.
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 No other prior history of DVT or PE events.
Pulmonary consultation was requested for further input.
#1. Acute pulmonary embolism, bilateral and saddle with RLE DVT
- Submassive with mild right heart strain noted on imaging. Troponin and BNP also both elevated
- Patient hemodynamically doing well, blood pressure 153/78. No tachycardia or tachypnea. Saturating 95% on room air currently.
- Check echocardiogram for further evaluation, lower extremity Doppler suggestive of right lower extremity DVT
- Troponin leak likely in the setting of bilateral pulmonary embolism. Follow-up troponin is already improving. No ST elevation noted on EKG.
- Etiology appears to be provoked in the setting of long flight from [place]. Needs a minimum of 3-6 months of anticoagulation as long as age-appropriate cancer screening is negative and no active malignancy, with resolution of clot on follow-up
imaging.
- Hypercoagulability workup less likely to be helpful at age 74 particularly in the setting of a provoked VTE event
- Outpatient follow-up with hematology and [facility] pulmonary clinic
- Transition to Eliquis 10 mg twice daily starting tonight. Discontinue aspirin to avoid increased risk with dual antiplatelet and anticoagulant therapy.
Other medical diagnoses:
- History of colon cancer
- History of leiomyosarcoma
- SVC syndrome, s/p stent placement
Total time spent on this consultation/encounter __45__ minutes which includes review of history, physical exam, medications, laboratory data, personal review of imaging, extensive review of outpatient records, discussion with care team and
respiratory therapy.
Data:
CT-PE 03/2025: 1. Saddle pulmonary emboli extending throughout all lobar and most segmental pulmonary arteries bilaterally.
2. Findings suggesting right heart strain.
Subjective Data
-
Date of Service:
Date of Service: March 14, 2025
Subjective:
Patient comfortably sitting in bed in no acute distress.
Review of Systems
Genitourinary: Other (All 14 systems reviewed and negative except as stated above in the history of present illness.)
Objective Data
Data Reviewed
Vital Signs / I&O / Oxygen:
Vital Signs
Temp Pulse Resp BP Pulse Ox
98.1 F 60 17 153/78 91
03/14/25 11:00 03/14/25 11:00 03/14/25 11:00 03/14/25 11:00 03/14/25 11:00
Intake and Output
03/13/25 03/14/25 03/15/25
06:59 06:59 06:59
Intake Total 1440 / 1440
Balance 1440 / 1440
SaO2 91
Nasal Cannula flow liters per 3
minute
Physical Exam
General: Comfortable
HEENT: Normocephalic
Cardiovascular: S1-S2
Respiratory: Clear and Non-Labored Respirations
GI: Soft and Non Distended
Neurology: Awake and Alert
Skin: Warm
Labs/Micro/Reports
Lab Data
03/14/25 03:29
03/14/25 03:29
Laboratory Results
03/13/25 03/14/25
19:52 03:29
APTT 78.7 H 85.9 H
[2025-03-15 03:00] VITALS: BP 162/88
[2025-03-15 03:52] VITALS: BMI 25.0
--- NOTE | 2025-03-15 04:10 | PTCARENOTE ---
BP taken, 162/88. [facility] provider. Highest BP pt has had since his admission. New orders. See AUG.
[2025-03-15] MEDS: APRESOLINE 5 MG IV (04:27)
[2025-03-15 06:31] LABS: Hematocrit 42.5 % (39.0-52.0); Hemoglobin 15.1 g/dL (13.0-18.0); Mean Corp Hgb Conc. 35.5 g/dL (33.0-37.0); Mean Corpuscular Volume 94.7 fL (80.0-94.0); Platelet Count 221 10^3/uL (130-400); Red Cell Dist. Width 11.9 % (11.5-14.5)
[2025-03-15 06:37] LABS: APTT 69.9 Sec (23.4-35.0)
[2025-03-15 06:59] LABS: Blood Urea Nitrogen 17 mg/dl (9-20); Calcium 8.8 mg/dl (8.4-10.2); Carbon Dioxide 24 mmol/L (22-30); Chloride 108 mmol/L (98-107); Estimated Creatinine Clearance 66 ml/min; Glucose 119 mg/dl (70-99); Magnesium 2.1 mg/dl (1.6-2.3); Potassium 4.5 mmol/L (3.5-5.1); Sodium 138 mmol/L (135-145); eGFR > 60.00
[2025-03-15 07:00] VITALS: BP 135/85
[2025-03-15] MEDS: LIPITOR 10 MG PO (07:39)
[2025-03-15] MEDS: ELIQUIS 10 MG PO (07:39)
[2025-03-15] MEDS: TYLENOL 650 MG PO (07:44)
--- NOTE | 2025-03-15 08:47 | W.PN.HOSP.TC ---
Today's Communication/Plan
-
Discharge today
Assessment / Plan
Assessment / Plan
A/P: Patient is a 74y M with PMH significant for colon cancer, leiomyosarcoma and hemochromatosis who presents to ED complaining of chest pain and SOB.
Acute Pulmonary Emboli
Acute RLE DVT
- Chest pain and SOB following recent travel to [place] and noted R calf pain about 1-2 days after return flight.
- CT shows bilateral PE with saddle component. Hemodynamically stable. Weaned off oxygen supplementation.
- Troponin mildly elevated 0.940 peak, since trended down, possible PE cor pulmonale vs non-ischemic myocardial injury
- Home oxygen assessment 03/14 08:25 appreciated no needs, ambulatory without need for assist device, no need for PT eval at this time
- LE doppler appreciated RLE DVT femoral popliteal peroneal veins, no DVT LLE
- Appreciate pulmonology and hematology input, hematology recommends anticoagulation for at least 6 months
- Hep gtt 48h treatment to transition to Eliquis 10 mg BID 10 AM
- Echo completed, shows mildly elevated pulmonary pressures, no right heart strain
- Medically stable for discharge on Eliquis 10 mg twice a day through 03/21, then 5 mg twice a day
- Follow-up with pulmonology/oncology in the office in 3-4 weeks and PCP in 1 week
Arrhythmia
- Patient has external potline monitor in place for evaluation of low heart rates.
- Monitor on tele during stay here.
- Follow-up with Cardiology (Dr. Santos) after discharge.
History of Colon Cancer
History of RLE Leiomyosarcoma
History of SVC Syndrome s/p Stent
- All remote problems with no current / recent active issues.
DVT prophylaxis: Eliquis
Code Status: Full
Physical Exam
General: No acute distress
HEENT: Normocephalic, Atraumatic, EOMI, MMM
Respiratory: Clear to Auscultation bilaterally
Cardiac: Normal S1/S2, Regular Rate and Rhythm
GI: Soft, Nontender, Nondistended, Normal Bowel Sounds
Extremities: No Clubbing, Cyanosis
Right lower extremity edema noted
Neuro: Nonfocal/Grossly Intact
Anticipated Discharge: Today
Subjective/Interval History
-
Date of Service: March 15, 2025
Patient reports right leg pain. He denies chest pain, denies shortness of breath. Denies hemoptysis. No fever, no vomiting.
Objective Data
-
Labs:
Laboratory Results
03/15/25
06:12
WBC 7.1
Hgb 15.1
Hct 42.5
Plt Count 221
APTT 69.9 H
Sodium 138
Potassium 4.5
Chloride 108 H
Carbon Dioxide 24
BUN 17
Creatinine 1.0
Glucose 119 H
Calcium 8.8
Vital Signs:
Vital Signs
Temp Pulse Resp BP Pulse Ox
99.0 F 75 17 135/85 95
03/15/25 07:00 03/15/25 07:00 03/15/25 07:00 03/15/25 07:00 03/15/25 07:00
I&O
03/14/25 03/15/25 03/16/25
06:59 06:59 06:59
Intake Total 1440 / 1440 600 / 600
Balance 1440 / 1440 600 / 600
[2025-03-15 11:00] VITALS: BP 147/75
[2025-03-15 15:00] VITALS: BP 158/80
--- NOTE | 2025-03-15 15:07 | W.DCSUMMARY ---
Discharge Summary
Discharge Data
Date of Admission: 03/13/25
Date of Discharge: 03/15/25
-
Pending Results: No
Hospital Course
Discharge diagnosis:
Acute hypoxic respiratory insufficiency
Acute pulmonary emboli
Acute right lower extremity deep vein thrombosis
Arrhythmia
History of colon cancer
Consults: Pulmonology, hematology
CT chest:
1. Saddle pulmonary emboli extending throughout all lobar and most segmental pulmonary arteries bilaterally.
2. Findings suggesting right heart strain.
Echocardiogram:
1. Normal biventricular size and systolic function without regional wall motion abnormality. LVEF 65-70%.
2. Mild mitral regurgitation.
3. Mild tricuspid regurgitation with mildly elevated pulmonary artery pressure. PASP 43 mmHg.
4. No prior study available for comparison.
RLE US:
1. Right lower extremity DVT involving the femoral, popliteal and peroneal veins, as described.
2. No evidence of deep venous thrombosis in the left lower extremity as described above.
Hospital course:
74-year-old male with a past medical history of colon cancer was admitted for acute hypoxic respiratory insufficiency secondary to acute pulmonary emboli and acute right lower extremity DVT following a flight home from [place]. Patient was seen in
conjunction with pulmonology and hematology. He was treated with an IV heparin drip. After 48 hours, he was transitioned to Eliquis 10 mg twice a day for 7 days, then 5 mg twice a day. Hematology recommends anticoagulation for at least 6 months.
Echocardiogram was negative for right heart strain. Patient's hypoxia resolved, his shortness of breath resolved. He does not need any oxygen upon discharge. He is medically stable for discharge on Eliquis 10 mg twice a day through 03/21/2025,
then 5 mg twice a day. He needs to follow-up with his PCP in 1 week, as well as pulmonology in 1-2 months.
Disposition: Home self-care
Discharge plannin minutes
Discharge Plan
-
Patient Disposition: Home (Routine Discharge)
Discharge Diagnosis/Procedures: Pulmonary embolism with right lower extremity deep vein thrombosis
Condition: Good
Diet: Low Fat and Low Cholesterol
Activity: As tolerated
Driving Restrictions: As prior to admission
Activity Restrictions/Additional Instructions:
Take Eliquis 10 mg twice a day through 03/21/2025, then 5 mg twice a day.
Hematology recommends you take Eliquis for at least 6 months.
Follow-up with your usual beef skinner/oncologist or pulmonology in 3-4 weeks, and your PCP in 1 week.
Referrals:
Alcon Fernandez MD [Active, Pulmonary Medicine] - in one to two months
Caridad Gutierrez MD [Family Provider, Internal Medicine] - in one week
Prescriptions:
New
Eliquis 5 mg tablet
See Rx Instructions .ROUTE .COMPLEX Qty: 90 0RF
Rx Instructions:
2 tablets twice a day thru 03/21/25, then 1 tablet twice a day
Continued
atorvastatin 10 mg Tablet
10 mg PO DAILY
Discontinued
aspirin 81 mg Tablet,Chewable
81 mg PO 1XD
Discharge Orders:
Discharge Patient (As Directed); Ordered 03/15/25
Ordered By: Med Rolon
Discharge Date and Time
Discharge Date/Time: 03/15/25 16:00
Print Language: FINNISH
--- NOTE | 2025-03-15 16:42 | CM ---
CM met with Artem prior to his discharge today. IMM provided, signed and placed in chart.
Pt screened by PT and plan is for Artem to go home today with no needs. His will transport.
[2025-03-16 18:07] LABS: Beta-2-Glycoprotein I Ab. IgG <10 SGU (<=20); Beta-2-Glycoprotein I Ab. IgM <10 SMU (<=20)
== END 2025-03-15 16:00 | disposition home or self-care (01) | DRG 176 ==
LOC: 3 WEST ACU 05:17
PROVIDERS: Internal Medicine; ADMITTING PHYSICIAN Hospitalist; ATTENDING PHYSICIAN Family Medicine; CONSULT PHYSICIAN Internal Medicine; CONSULT PHYSICIAN Internal Medicine Hematology & Oncology; EMERGENCY PHYSICIAN Emergency Medicine; FAMILY PHYSICIAN Internal Medicine
DX: I26.92 Saddle embolus of pulmonary artery without acute cor pulmonale (principal); I82.411 Acute embolism and thrombosis of right femoral vein; Z85.038 Personal history of other malignant neoplasm of large intestine; Z85.828 Personal history of other malignant neoplasm of skin; E78.5 Hyperlipidemia, unspecified; Z79.899 Other long term (current) drug therapy; Z87.891 Personal history of nicotine dependence; Z92.21 Personal history of antineoplastic chemotherapy; Z92.3 Personal history of irradiation
CPT/HCPCS: 71046; 71275; 80048; 80053; 80061; 83735; 83880; 84100; 84484; 85025; 85027; 85379; 85730; 86146; 86147; 93005; 93306; 93970; 94761; 96365; 96366; 96375; 99291; Q9967